=== PATIENT | male | born 1955 | race Caucasian/White ===

== ENCOUNTER 2019-09-29 16:52 | Emergency (ER) | payer SELFPAY ==
[~2019-09-29] VITALS: Ht 172.7 cm; Wt 78.0 kg
[2019-09-29] MEDS ORDERED: NACL 0.9% 1,000 ML IV ONE (16:54)
[2019-09-29 16:55] VITALS: BP_SYST 156
--- NOTE | 2019-09-29 16:55 | NUR ---
Patient to ER bed 02 to gown for evaluation. Side rails up.
--- NOTE | 2019-09-29 16:57 | NUR ---
Patient brought in by ambulance in the ED post seizure that happened today. Patient denied any chest pain or shortness of breath. Denied any fevers, chills, nausea, or vomiting. Patient is alert and oriented x3, respirations even and unlabored, patient is non-verbal able to make needs known through non-verbal cues, bed-bound. VSS, pain level 0/10. Informed of approximate wait time. Instructed to notify ED staff for any changes in condition or worsening of symptoms. Patient verbalized understanding.
[2019-09-29] MEDS ORDERED: LORazepam 2 MG/ML VIAL IVP ONE (17:00)
--- NOTE | 2019-09-29 17:00 | NUR ---
ER Dr. Jerome at bedside examining patient.
[2019-09-29] MEDS ORDERED: DILTIAZEM HCL 25 MG/5 ML VIAL IVP ONE (17:15)
[2019-09-29] MEDS ORDERED: levETIRAcetam 500 MG TABLET PO ONE (17:15)
[2019-09-29 17:46] LABS: BASOPHILS % (AUTO) 0.3 % (0.0-2.0); EOSINOPHILS # (AUTO) 0.2 K/uL (0.0-0.4); EOSINOPHILS % (AUTO) 1.7 % (0.0-4.0); HEMATOCRIT 42.8 % (36-54); HEMOGLOBIN 14.6 g/dL (14.0-18.0); LYMPHOCYTES # (AUTO) 1.6 K/uL (1.0-5.5); LYMPHOCYTES % (AUTO) 15.3 % (20.5-51.5); MEAN CORPUSCULAR HEMOGLOBIN 33 pg (27-31); MEAN CORPUSCULAR HGB CONC 34 % (32-36); MEAN CORPUSCULAR VOLUME 96 fL (79.0-98.0); MONOCYTES # (AUTO) 0.7 K/uL (0.0-1.0); MONOCYTES % (AUTO) 6.6 % (1.7-9.3); NEUTROPHILS # (AUTO) 8.2 K/uL (1.8-7.7); NEUTROPHILS % (AUTO) 76.1 % (40.0-70.0); PLATELET COUNT (AUTO) 176 K/uL (130-430); RED BLOOD CELL COUNT(AUTO) 4.45 MIL/uL (4.2-6.2); RED CELL DISTRIBUTION WIDTH 14.4 % (9.0-15.0); WHITE BLOOD COUNT (AUTO) 10.7 K/uL (4.8-10.8)
[2019-09-29 17:52] LABS: ANION GAP 8 (5-15); CALCIUM 8.9 mg/dL (8.4-11.0); CHLORIDE 102 mmol/L (98-107); CREATININE 1.45 mg/dL (0.55-1.30); GLUCOSE 201 mg/dL (70-99); INR 1.5 (0.80-1.20); POTASSIUM 3.5 mmol/L (3.5-5.1); PROTHROMBIN TIME 15.1 SECS (9.5-12.5); SODIUM SERUM 138 mmol/L (136-145); UREA NITROGEN, BLOOD 21 mg/dL (8-21)
[2019-09-29 17:56] LABS: ALANINE AMINOTRANSFERASE 36 U/L (12-78); ALBUMIN 3.6 g/dL (3.4-4.8); AMYLASE 49 U/L (0-100); ASPARTATE AMINOTRANSFERASE 25 U/L (10-37); LIPASE 149 U/L (73-393); TOTAL BILIRUBIN 0.8 mg/dL (0.0-1.0)
[2019-09-29 18:05] LABS: GFR AFRICAN AMERICAN 63 mL/min (>90)
[2019-09-29 18:06] LABS: PHENYTOIN (DILANTIN) < 0.5 ug/mL (10.0-20.0)
[2019-09-29] MEDS ORDERED: PHENYTOIN SODIUM INJ 1,000 MG in NS 100 ML IV ONE (18:15)
--- NOTE | 2019-09-29 18:52 | NUR ---
Administered Cardizem IVP as ordered by Dr. Jerome. Patient tolerated the medication well. See eMAR for details.
[2019-09-29] MEDS ORDERED: levETIRAcetam 500 MG IV PREMIX 100 ML IV ONE (19:00)
--- NOTE | 2019-09-29 19:07 | NUR ---
Received report ALEXI Brown.
[2019-09-29] MEDS ORDERED: PHENYTOIN SODIUM 250 MG/5 ML INJ. VIAL IV ONE (19:41)
--- NOTE | 2019-09-29 20:18 | NUR ---
Spoke with patient's son, They will come and pink up patient.
[2019-09-29 20:24] LABS: BILIRUBIN,URINE NEGATIVE (NEGATIVE); BLOOD, URINE 3+ (NEGATIVE); CLARITY/URINE TURBID (CLEAR); COLOR,URINE YELLOW (YELLOW); GLUCOSE,URINE TRACE (NEGATIVE); KETONES,URINE NEGATIVE (NEGATIVE); LEUKOCYTE ESTERASE ,URINE 3+ (NEGATIVE); NITRITE, URINE NEGATIVE (NEGATIVE); PROTEIN URINE 2+ (NEGATIVE)
--- NOTE | 2019-09-29 20:24 | NUR ---
Patient resting quietly. No acute distress noted. Vital signs within normal range.
[2019-09-29 20:45] LABS: BACTERIA,URINE MANY /HPF (None Seen); WBC,URINE >100 /HPF (0-3)
[2019-09-29 20:46] LABS: TRIPLE PHOSPHATE CRYSTAL,UR 30-50 /HPF (None Seen); URINE AMORPHOUS PHOSPHATES 3+ /HPF (None Seen)
[2019-09-29 20:48] LABS: BARBITURATE, URINE NEGATIVE (NEG <=200); BENZODIAZEPINE, URINE NEGATIVE (NEG <=150); CANNABINOID, URINE NEGATIVE (NEG <=50); COCAINE, URINE NEGATIVE (NEG <=150); METHAMPHETAMINES SCREEN,URINE NEGATIVE (NEG <=500); OPIATE, URINE NEGATIVE (NEG <=100); PHENCYCLIDINE SCREEN,URINE NEGATIVE (NEG <=25); UR TRICYCLIC ANTIDEPRESSANTS NEGATIVE (NEG <=300); URINE AMPHETAMINE NEGATIVE (NEG <=500); URINE METHADONE NEGATIVE (NEG <=200); URINE OXYCODONE SCREEN NEGATIVE (NEG <=100); URINE PROPOXYPHENE SCREEN NEGATIVE (NEG <=300)
[2019-09-29 21:30] VITALS: BP_SYST 147
--- NOTE | 2019-09-29 21:30 | NUR ---
Patient's family given written and verbal discharge instructions and verbalizes understanding. ER MD discussed with patient the results and treatment provided. Patient in stable condition. ID arm band removed. IV catheter removed intact and dressing applied, no active bleeding. Rx of Dilantin given. Patient' family educated on pain management and to follow up with PMD. Pain Scale 0/10. Opportunity for questions provided and answered. Medication side effect fact sheet provided.
== END 2019-09-29 21:30 | disposition home or self-care (01) ==
LOC: SED 16:52
DX: G40.909 Epilepsy, unspecified, not intractable, without status epilepticus (principal); I48.20 Chronic atrial fibrillation, unspecified; Z86.73 Personal history of transient ischemic attack (TIA), and cerebral infarction without residual deficits
CPT/HCPCS: 36415; 70450; 71045; 80053; 80185; 80307; 81000; 82150; 82542; 82550; 83605; 83690; 83880; 84484; 85025; 85610; 85730; 87040; 87086; 93005; 96365; 96367; 96375; 99285; J1165; J1953; J3490; J7030; 87186-TC; J2060